=== PATIENT | female | born 1985 | race African-American/Black ===

== ENCOUNTER 2022-09-24 10:21 | Emergency (ER) | payer BC, OTHER ==
[~2022-09-24] VITALS: Ht 165.1 cm; Wt 91.0 kg
[2022-09-24 10:52] VITALS: BP 108/64
[2022-09-24] MEDS ORDERED: IBUP-2029 MT (13:01)
[2022-09-24] MEDS ORDERED: ACYC200C31 PO (13:01)
== END 2022-09-24 13:47 | disposition home or self-care (01) ==
LOC: ER 10:21
DX: Z76.0 Encounter for issue of repeat prescription (principal); B00.9 Herpesviral infection, unspecified
CPT/HCPCS: 99283